=== PATIENT | male | born 1975 | race African-American/Black ===

== ENCOUNTER 2022-09-11 15:52 | Inpatient (IN) | payer OTHER ==
[2022-09-11 17:00] VITALS: RESP 18; BMI 29.4
[2022-09-11] MEDS ORDERED: BENZOCAINE/MENTHOL (CHLORASEPTIC ) LOZENGE MM PRN (19:45)
[2022-09-11] MEDS ORDERED: hydrOXYzine PAMOATE 25 MG CAPSULE (FP) PO PRN (19:45)
[2022-09-11] MEDS ORDERED: AMMONIUM LACTATE 12% LOTION 225 GM BOTTLE TP PRN (19:45)
[2022-09-11] MEDS ORDERED: MAG HYDROX/AL HYDROX/SIMETH 30 ML UNIT-DOSE CUP PO PRN (19:45)
[2022-09-11] MEDS ORDERED: COLLOIDAL OATMEAL 1 BAR EACH TP PRN (19:45)
[2022-09-11] MEDS ORDERED: POLYETHYLENE GLYCOL (HEALTHYLAX) 3350 17 GM PACKET PO PRN (19:45)
[2022-09-11] MEDS ORDERED: BENZONATATE 200 MG CAPSULE PO PRN (19:45)
[2022-09-11] MEDS ORDERED: MAGNESIUM HYDROX 2400MG/30ML ORAL SUSPENSION 30 ML CUP PO PRN (19:45)
[2022-09-11] MEDS ORDERED: guaiFENesin 600 MG TABLET.ER (FP) PO PRN (19:45)
[2022-09-11] MEDS ORDERED: LOPERAMIDE HCL 2 MG CAPSULE PO PRN (19:45)
[2022-09-11] MEDS ORDERED: ACETAMINOPHEN 325 MG TABLET (FP) PO PRN (19:45)
[2022-09-11] MEDS ORDERED: cloNIDine HCL 0.1 MG TABLET PO ONE (19:54)
[2022-09-11] MEDS: THIAMINE HCL 100 MG TABLET (FP) PO SCH (22:13)
[2022-09-11] MEDS: MELATONIN 5 MG TABLETS PO SCH (22:14)
[2022-09-12] MEDS ORDERED: LEVOTHYROXINE NA 150 MCG TABLET PO SCH (07:00)
[2022-09-12] MEDS ORDERED: hydrOXYzine PAMOATE 25 MG CAPSULE (FP) PO PRN (09:49)
[2022-09-12] MEDS: PRENATAL VITAMINS W/ FOLIC ACID TABLET (FP) PO SCH (10:27)
[2022-09-12] MEDS: SPIRONOLACTONE 25 MG TABLET PO SCH (10:27)
[2022-09-12] MEDS: FUROSEMIDE 40 MG TABLET (FP) PO SCH (10:27)
[2022-09-12 10:39] LABS: HEMATOCRIT 34.5 % (35.4-49); HEMOGLOBIN 12.1 GM/dL (11.7-16.9); MCH 33.7 pg (25.7-33.7); MEAN CELL VOLUME 96.3 fl (80-96); MEAN PLT VOLUME 8.4 fl (7.5-11.1); PLATELET COUNT 207 10^3/uL (134-434); RBC 3.58 M/mm3 (4.00-5.60); RDW 14.1 % (11.9-15.9)
[2022-09-12 10:42] LABS: CALCIUM 8.9 mg/dL (8.5-10.1)
[2022-09-12 10:46] LABS: CREATININE 1.7 mg/dL (0.55-1.3)
[2022-09-12 10:47] LABS: BILIRUBIN,TOTAL 0.8 mg/dL (0.2-1); TOT PROT 7.6 g/dl (6.4-8.2)
[2022-09-12 11:16] LABS: SYPHILIS W/ RPR CONF NON-REACTIVE (NONREACTIVE)
[2022-09-12 11:23] LABS: SICKLE CELL SCREEN NEGATIVE (NEGATIVE)
[2022-09-12 11:48] LABS: HIV INTERPRETATION NEGATIVE (NEGATIVE)
[2022-09-12] MEDS: THIAMINE HCL 100 MG TABLET (FP) PO SCH (21:12)
[2022-09-12] MEDS: MELATONIN 5 MG TABLETS PO SCH (21:12)
[2022-09-13] MEDS ORDERED: cloNIDine HCL 0.1 MG TABLET PO ONE (06:36)
[2022-09-13] MEDS ORDERED: LEVOTHYROXINE 100 MCG, LEVOTHYROXINE 50 MCG PO ONE (08:30)
[2022-09-13] MEDS: SPIRONOLACTONE 25 MG TABLET PO SCH (10:02)
[2022-09-13] MEDS: PRENATAL VITAMINS W/ FOLIC ACID TABLET (FP) PO SCH (10:02)
[2022-09-13] MEDS: FUROSEMIDE 40 MG TABLET (FP) PO SCH (10:02)
[2022-09-13] MEDS ORDERED: LACTULOSE 20 GM/30 ML UDC (FOR ORAL USE ONLY) PO PRN (10:30)
[2022-09-13] MEDS: metoPROLOL SUCCINATE 25 MG TAB.SR.24H (FP) PO SCH (11:07)
[2022-09-13] MEDS: THIAMINE HCL 100 MG TABLET (FP) PO SCH (21:23)
[2022-09-13] MEDS: LACTULOSE 20 GM/30 ML UDC (FOR ORAL USE ONLY) PO SCH (21:24)
[2022-09-13] MEDS: MELATONIN 5 MG TABLETS PO SCH (21:47)
[2022-09-14] MEDS: LACTULOSE 20 GM/30 ML UDC (FOR ORAL USE ONLY) PO SCH ×3 (05:57→21:04)
[2022-09-14] MEDS: IBUPROFEN 400 MG TABLET (FP) PO PRN (05:58)
[2022-09-14] MEDS ORDERED: LEVOTHYROXINE 100 MCG, LEVOTHYROXINE 50 MCG PO SCH (07:00)
[2022-09-14] MEDS: SPIRONOLACTONE 25 MG TABLET PO SCH (09:03)
[2022-09-14] MEDS: FUROSEMIDE 40 MG TABLET (FP) PO SCH (09:03)
[2022-09-14] MEDS: PRENATAL VITAMINS W/ FOLIC ACID TABLET (FP) PO SCH (09:03)
[2022-09-14] MEDS: metoPROLOL SUCCINATE 25 MG TAB.SR.24H (FP) PO SCH (09:04)
[2022-09-14] MEDS ORDERED: ARTIFICIAL TEARS (POLYVINYL ALCOHOL) OPTH DROPS OU PRN (10:45)
[2022-09-14] MEDS: cloNIDine HCL 0.1 MG TABLET PO SCH ×2 (11:12→21:04)
[2022-09-14] MEDS: THIAMINE HCL 100 MG TABLET (FP) PO SCH (21:03)
[2022-09-14] MEDS: MELATONIN 5 MG TABLETS PO SCH (21:03)
[2022-09-14] MEDS: NICOTINE 10 MG CARTRIDGE (INHALER) IH PRN (21:06)
[2022-09-15] MEDS ORDERED: LEVOTHYROXINE 100 MCG, LEVOTHYROXINE 50 MCG PO SCH (06:00)
[2022-09-15] MEDS: LEVOTHYROXINE 100 MCG, LEVOTHYROXINE 50 MCG PO SCH (06:21)
[2022-09-15] MEDS: LACTULOSE 20 GM/30 ML UDC (FOR ORAL USE ONLY) PO SCH (07:08)
[2022-09-15] MEDS: PRENATAL VITAMINS W/ FOLIC ACID TABLET (FP) PO SCH (09:47)
[2022-09-15] MEDS: FUROSEMIDE 40 MG TABLET (FP) PO SCH (09:47)
[2022-09-15] MEDS: SPIRONOLACTONE 25 MG TABLET PO SCH (09:47)
[2022-09-15] MEDS: cloNIDine HCL 0.1 MG TABLET PO SCH ×2 (09:47→21:08)
[2022-09-15] MEDS: metoPROLOL SUCCINATE 25 MG TAB.SR.24H (FP) PO SCH (09:48)
[2022-09-15] MEDS ORDERED: WITCH HAZEL 50% (TUCKS) 40 PAD/JAR PAD TP PRN (10:37)
[2022-09-15] MEDS ORDERED: LACTULOSE 20 GM/30 ML UDC (FOR ORAL USE ONLY) PO PRN (11:18)
[2022-09-15 11:30] LABS: INR 1.15 (0.83-1.09); PROTHROMBIN TIME (PATIENT) 13.3 SEC (9.7-13.0)
[2022-09-15] MEDS: MAGNESIUM OXIDE 400 MG TABLET (FP) PO SCH ×2 (12:38→21:08)
[2022-09-15] MEDS: CHOLECALCIFEROL (VIT D3) 400 UNIT (10 MCG) TABLET PO SCH (12:39)
[2022-09-15] MEDS: IBUPROFEN 600 MG TABLET (FP) PO PRN (12:39)
[2022-09-15] MEDS: THIAMINE HCL 100 MG TABLET (FP) PO SCH (21:08)
[2022-09-15] MEDS: MELATONIN 5 MG TABLETS PO SCH (21:08)
[2022-09-15] MEDS: NICOTINE 10 MG CARTRIDGE (INHALER) IH PRN (21:08)
[2022-09-16] MEDS: LEVOTHYROXINE 100 MCG, LEVOTHYROXINE 50 MCG PO SCH (06:17)
[2022-09-16] MEDS: IBUPROFEN 400 MG TABLET (FP) PO PRN (07:40)
[2022-09-16] MEDS: cloNIDine HCL 0.1 MG TABLET PO SCH ×2 (09:46→23:16)
[2022-09-16] MEDS: FUROSEMIDE 40 MG TABLET (FP) PO SCH (09:46)
[2022-09-16] MEDS: SPIRONOLACTONE 25 MG TABLET PO SCH (09:46)
[2022-09-16] MEDS: CHOLECALCIFEROL (VIT D3) 400 UNIT (10 MCG) TABLET PO SCH (09:46)
[2022-09-16] MEDS: metoPROLOL SUCCINATE 25 MG TAB.SR.24H (FP) PO SCH (09:46)
[2022-09-16] MEDS: MAGNESIUM OXIDE 400 MG TABLET (FP) PO SCH ×2 (09:46→23:16)
[2022-09-16] MEDS: PRENATAL VITAMINS W/ FOLIC ACID TABLET (FP) PO SCH (09:46)
[2022-09-16 12:09] LABS: CALCIUM 8.2 mg/dL (8.5-10.1)
[2022-09-16 12:10] LABS: ALBUMIN 3.1 g/dl (3.4-5.0); BLOOD UREA NITROGEN 7.6 mg/dL (7-18)
[2022-09-16 12:13] LABS: CREATININE 1.7 mg/dL (0.55-1.3)
[2022-09-16 12:15] LABS: BILIRUBIN,TOTAL 0.9 mg/dL (0.2-1); TOT PROT 7.4 g/dl (6.4-8.2)
[2022-09-16] MEDS: IBUPROFEN 600 MG TABLET (FP) PO PRN (15:45)
[2022-09-16 17:41] VITALS: BP 147/98; PULSE 87; TEMP 97.3
[2022-09-16] MEDS: MELATONIN 5 MG TABLETS PO SCH (23:17)
[2022-09-16] MEDS: THIAMINE HCL 100 MG TABLET (FP) PO SCH (23:17)
== END 2022-09-17 00:01 | disposition short-term general hospital (02) | DRG 772 ==
LOC: YASAS 15:52 → Y3W 20:56
PROVIDERS: ADMIT Allergy & Immunology; ATTEND Family Medicine
PROC: HZ42ZZZ Group Counseling for Substance Abuse Treatment, Cognitive-Behavioral (ICD-10-PCS; principal; 2022-09-11)
DX: F10.20 Alcohol dependence, uncomplicated (principal); F17.210 Nicotine dependence, cigarettes, uncomplicated; F10.282 Alcohol dependence with alcohol-induced sleep disorder; F10.280 Alcohol dependence with alcohol-induced anxiety disorder; F10.24 Alcohol dependence with alcohol-induced mood disorder; I10 Essential (primary) hypertension; K70.31 Alcoholic cirrhosis of liver with ascites; E03.9 Hypothyroidism, unspecified; E87.1 Hypo-osmolality and hyponatremia; Z28.310 Unvaccinated for COVID-19; Z28.9 Immunization not carried out for unspecified reason
CPT/HCPCS: 36415; 80053; 82140; 82306; 82607; 82746; 83735; 84443; 85027; 85610; 85660; 86780; 86803; 87389; 93005; 93010; C9803-CS; U0003; U0005

== ENCOUNTER 2022-09-16 17:05 | Inpatient (IN) | payer OTHER ==
[2022-09-16 18:47] LABS: BASO % 0.5 % (0-2.0); EOS % 0.5 % (0-4.5); HEMATOCRIT 31.6 % (35.4-49); HEMOGLOBIN 10.9 GM/dL (11.7-16.9); LYMPH % 16.7 % (8-40); MCH 32.5 pg (25.7-33.7); MCHC 34.4 g/dl (32.0-35.9); MEAN CELL VOLUME 94.7 fl (80-96); MEAN PLT VOLUME 7.5 fl (7.5-11.1); MONO % 14.4 % (3.8-10.2); NEUT % 67.9 % (42.8-82.8); PLATELET COUNT 259 10^3/uL (134-434); RBC 3.34 M/mm3 (4.00-5.60); RDW 13.5 % (11.9-15.9); WHITE BLOOD COUNT 6.8 K/mm3 (4.0-10.0)
[2022-09-16 19:05] LABS: POTASSIUM 3.7 mmol/L (3.5-5.1)
[2022-09-16 19:08] LABS: BLOOD UREA NITROGEN 8.1 mg/dL (7-18)
[2022-09-16 19:09] LABS: ALBUMIN 3.1 g/dl (3.4-5.0); MAGNESIUM 1.4 mg/dL (1.8-2.4)
[2022-09-16 19:11] LABS: BILIRUBIN,DIRECT 0.5 mg/dL (0.0-0.2); CREATININE 1.5 mg/dL (0.55-1.3)
[2022-09-16 19:13] LABS: BILIRUBIN,TOTAL 1.1 mg/dL (0.2-1); TOT PROT 7.5 g/dl (6.4-8.2)
[2022-09-16 19:16] LABS: INR 1.2 (0.83-1.09); PROTHROMBIN TIME (PATIENT) 13.9 SEC (9.7-13.0)
[2022-09-16 19:19] LABS: ACTIVATED PTT 29.3 SECONDS (25.2-36.5)
[2022-09-16 19:21] LABS: LACTIC ACID 2.7 mmol/L (0.4-2.0)
[2022-09-17] MEDS ORDERED: FUROSEMIDE 40 MG/4 ML INJECTABLE VIAL IVPUSH ONE (00:22)
[2022-09-17] MEDS ORDERED: SPIRONOLACTONE 25 MG TABLET PO ONE (00:22)
[2022-09-17] MEDS ORDERED: FUROSEMIDE 40 MG/4 ML INJECTABLE VIAL IVPUSH SCH (00:30)
[2022-09-17] MEDS: SPIRONOLACTONE 25 MG TABLET PO SCH ×2 (01:14→11:01)
[2022-09-17] MEDS ORDERED: LEVOTHYROXINE NA 150 MCG TABLET PO SCH (07:00)
[2022-09-17 07:21] LABS: BASO % 0.4 % (0-2.0); EOS % 0.5 % (0-4.5); HEMATOCRIT 34.2 % (35.4-49); HEMOGLOBIN 12.2 GM/dL (11.7-16.9); LYMPH % 15.2 % (8-40); MCH 33.9 pg (25.7-33.7); MCHC 35.8 g/dl (32.0-35.9); MEAN CELL VOLUME 94.7 fl (80-96); MEAN PLT VOLUME 8.3 fl (7.5-11.1); MONO % 14.2 % (3.8-10.2); NEUT % 69.7 % (42.8-82.8); PLATELET COUNT 262 10^3/uL (134-434); RBC 3.61 M/mm3 (4.00-5.60); RDW 13.3 % (11.9-15.9); WHITE BLOOD COUNT 5.8 K/mm3 (4.0-10.0)
[2022-09-17 07:43] LABS: POTASSIUM 3.9 mmol/L (3.5-5.1)
[2022-09-17 07:45] LABS: ALBUMIN 3.1 g/dl (3.4-5.0); CALCIUM 8.4 mg/dL (8.5-10.1)
[2022-09-17 07:46] LABS: BLOOD UREA NITROGEN 8.2 mg/dL (7-18); MAGNESIUM 1.2 mg/dL (1.8-2.4)
[2022-09-17 07:48] LABS: CREATININE 1.5 mg/dL (0.55-1.3); PHOSPHOROUS 3.7 mg/dL (2.5-4.9)
[2022-09-17 07:50] LABS: TOT PROT 7.9 g/dl (6.4-8.2)
[2022-09-17] MEDS: FUROSEMIDE 40 MG TABLET (FP) PO SCH (09:18)
[2022-09-17] MEDS: GABAPENTIN 100 MG CAPSULE PO SCH ×3 (09:18→23:02)
[2022-09-17] MEDS ORDERED: FUROSEMIDE 40 MG TABLET (FP) PO SCH (10:00)
[2022-09-17] MEDS ORDERED: SPIRONOLACTONE 25 MG TABLET PO SCH (10:00)
[2022-09-17] MEDS ORDERED: ENOXAPARIN NA (PORCINE) 40 MG/0.4 ML DISP.SYRIN SQ SCH (10:00)
[2022-09-17] MEDS: ENOXAPARIN NA (PORCINE) 40 MG/0.4 ML DISP.SYRIN SQ SCH (14:34)
[2022-09-17] MEDS ORDERED: MAGNESIUM SULF 50% (8.12 MEQ/2 ML-1 GM VIAL) IVPB ONE (16:42)
[2022-09-17] MEDS ORDERED: ACETAMINOPHEN 325 MG TABLET (FP) PO ONE (20:02)
[2022-09-17] MEDS ORDERED: traZODone HCL 50 MG TABLET (FP) ONE (21:03)
[2022-09-17] MEDS: traZODone HCL 100 MG TABLET (FP) PO SCH (23:03)
[2022-09-18] MEDS: GABAPENTIN 100 MG CAPSULE PO SCH ×3 (06:25→22:59)
[2022-09-18] MEDS: LEVOTHYROXINE NA 150 MCG TABLET PO SCH (06:26)
[2022-09-18] MEDS ORDERED: LEVOTHYROXINE NA 150 MCG TABLET PO SCH (07:00)
[2022-09-18 08:49] LABS: POTASSIUM 3.2 mmol/L (3.5-5.1)
[2022-09-18 08:54] LABS: ALBUMIN 2.9 g/dl (3.4-5.0); CALCIUM 7.9 mg/dL (8.5-10.1)
[2022-09-18 08:55] LABS: BLOOD UREA NITROGEN 8.2 mg/dL (7-18)
[2022-09-18 08:57] LABS: CREATININE 1.3 mg/dL (0.55-1.3)
[2022-09-18 08:58] LABS: BILIRUBIN,DIRECT 0.3 mg/dL (0.0-0.2)
[2022-09-18 08:59] LABS: BILIRUBIN,TOTAL 0.7 mg/dL (0.2-1); TOT PROT 7.1 g/dl (6.4-8.2)
[2022-09-18] MEDS ORDERED: POTASSIUM CHLORIDE TABS 20 MEQ TABLET.ER (FP) PO ONE (09:49)
[2022-09-18] MEDS: FUROSEMIDE 40 MG TABLET (FP) PO SCH (09:55)
[2022-09-18] MEDS: SPIRONOLACTONE 25 MG TABLET PO SCH (09:55)
[2022-09-18] MEDS: ENOXAPARIN NA (PORCINE) 40 MG/0.4 ML DISP.SYRIN SQ SCH (09:56)
[2022-09-18] MEDS ORDERED: FUROSEMIDE 40 MG TABLET (FP) PO SCH (10:00)
[2022-09-18] MEDS ORDERED: traZODone HCL 50 MG TABLET (FP) ONE (21:03)
[2022-09-18] MEDS ORDERED: ACETAMINOPHEN 325 MG TABLET (FP) PO ONE (22:56)
[2022-09-18] MEDS: traZODone HCL 100 MG TABLET (FP) PO SCH (22:59)
[2022-09-19] MEDS: GABAPENTIN 100 MG CAPSULE PO SCH ×3 (06:28→21:25)
[2022-09-19] MEDS: LEVOTHYROXINE NA 150 MCG TABLET PO SCH (06:28)
[2022-09-19] MEDS ORDERED: POTASSIUM CHLORIDE TABS 20 MEQ TABLET.ER (FP) PO ONE ×2 (08:28→13:39)
[2022-09-19 08:34] LABS: BASO % 0.6 % (0-2.0); EOS % 0.8 % (0-4.5); HEMATOCRIT 34.7 % (35.4-49); HEMOGLOBIN 11.9 GM/dL (11.7-16.9); LYMPH % 21.4 % (8-40); MCH 32.4 pg (25.7-33.7); MCHC 34.1 g/dl (32.0-35.9); MEAN CELL VOLUME 94.9 fl (80-96); MEAN PLT VOLUME 7.5 fl (7.5-11.1); MONO % 14.2 % (3.8-10.2); PLATELET COUNT 313 10^3/uL (134-434); RBC 3.66 M/mm3 (4.00-5.60); RDW 13.5 % (11.9-15.9); WHITE BLOOD COUNT 5.9 K/mm3 (4.0-10.0)
[2022-09-19 08:57] LABS: INR 1.16 (0.83-1.09); PROTHROMBIN TIME (PATIENT) 13.4 SEC (9.7-13.0)
[2022-09-19 08:58] LABS: ACTIVATED PTT 30.9 SECONDS (25.2-36.5)
[2022-09-19 08:59] LABS: POTASSIUM 3.3 mmol/L (3.5-5.1)
[2022-09-19 09:13] LABS: ALBUMIN 3.2 g/dl (3.4-5.0); CREATININE 1.3 mg/dL (0.55-1.3); PHOSPHOROUS 2.5 mg/dL (2.5-4.9)
[2022-09-19 09:14] LABS: BILIRUBIN,TOTAL 0.9 mg/dL (0.2-1); CALCIUM 8.6 mg/dL (8.5-10.1); MAGNESIUM 1.6 mg/dL (1.8-2.4); TOT PROT 8.1 g/dl (6.4-8.2)
[2022-09-19] MEDS: SPIRONOLACTONE 25 MG TABLET PO SCH (09:55)
[2022-09-19] MEDS: FUROSEMIDE 40 MG TABLET (FP) PO SCH (09:57)
[2022-09-19] MEDS ORDERED: MAGNESIUM SULF 50% (8.12 MEQ/2 ML-1 GM VIAL) IVPB ONE (13:39)
[2022-09-19] MEDS ORDERED: ALBUMIN HUMAN 25% 100 ML VIAL IV ONE (17:00)
[2022-09-19] MEDS ORDERED: LEVOTHYROXINE NA 150 MCG TABLET PO SCH (19:09)
[2022-09-19] MEDS ORDERED: ALBUMIN HUMAN 25% 100 ML VIAL IV SCH (19:15)
[2022-09-19] MEDS ORDERED: traZODone HCL 50 MG TABLET (FP) ONE (20:43)
[2022-09-19] MEDS: traZODone HCL 100 MG TABLET (FP) PO SCH (21:26)
[2022-09-19] MEDS: ALBUMIN HUMAN 25% 12.5 GM/50 ML VIAL IV SCH ×2 (21:27→22:03)
[2022-09-19 23:53] LABS: BF WBC & OTHER NUCLEATED CELLS 156 /mm3
[2022-09-19 23:56] LABS: BODY FLUID MACROPHAGES 32 %
[2022-09-20] MEDS: GABAPENTIN 100 MG CAPSULE PO SCH ×3 (06:26→22:58)
[2022-09-20] MEDS: LEVOTHYROXINE 100 MCG, LEVOTHYROXINE 75 MCG PO SCH (06:26)
[2022-09-20 08:16] LABS: INR 1.16 (0.83-1.09); PROTHROMBIN TIME (PATIENT) 13.4 SEC (9.7-13.0)
[2022-09-20 08:24] LABS: HEMATOCRIT 33.3 % (35.4-49); HEMOGLOBIN 11.6 GM/dL (11.7-16.9); MCH 32.8 pg (25.7-33.7); MCHC 34.7 g/dl (32.0-35.9); MEAN CELL VOLUME 94.8 fl (80-96); MEAN PLT VOLUME 7.4 fl (7.5-11.1); PLATELET COUNT 304 10^3/uL (134-434); RBC 3.52 M/mm3 (4.00-5.60); RDW 13.3 % (11.9-15.9); WHITE BLOOD COUNT 5.8 K/mm3 (4.0-10.0)
[2022-09-20 08:33] LABS: POTASSIUM 4.6 mmol/L (3.5-5.1)
[2022-09-20 08:40] LABS: CALCIUM 9.2 mg/dL (8.5-10.1); PHOSPHOROUS 2.3 mg/dL (2.5-4.9)
[2022-09-20 08:41] LABS: ALBUMIN 3.8 g/dl (3.4-5.0); BLOOD UREA NITROGEN 3.9 mg/dL (7-18); MAGNESIUM 2.2 mg/dL (1.8-2.4)
[2022-09-20 08:42] LABS: CREATININE 1.4 mg/dL (0.55-1.3)
[2022-09-20 08:44] LABS: BILIRUBIN,TOTAL 0.9 mg/dL (0.2-1); TOT PROT 8.1 g/dl (6.4-8.2)
[2022-09-20] MEDS ORDERED: NAPH,MB-DB/K PH,MBDB POWDER PACKET PO ONE (08:56)
[2022-09-20] MEDS: ENOXAPARIN NA (PORCINE) 40 MG/0.4 ML DISP.SYRIN SQ SCH (10:31)
[2022-09-20] MEDS: FUROSEMIDE 40 MG TABLET (FP) PO SCH (10:32)
[2022-09-20] MEDS: SPIRONOLACTONE 25 MG TABLET PO SCH (10:32)
[2022-09-20] MEDS ORDERED: SODIUM CHLORIDE 1 GM TABLET PO ONE (11:01)
[2022-09-20 16:26] VITALS: BMI 26.8
[2022-09-20] MEDS ORDERED: FUROSEMIDE 40 MG TABLET (FP) PO ONE (17:00)
[2022-09-20] MEDS ORDERED: traZODone HCL 50 MG TABLET (FP) ONE (22:30)
[2022-09-20] MEDS ORDERED: traZODone HCL 50 MG TABLET (FP) PO SCH ×2 (22:55→23:00)
[2022-09-20] MEDS: traZODone HCL 100 MG TABLET (FP) PO SCH (23:02)
[2022-09-21] MEDS ORDERED: IBUPROFEN 200 MG TABLET PO ONE (02:57)
[2022-09-21] MEDS: LEVOTHYROXINE 100 MCG, LEVOTHYROXINE 75 MCG PO SCH (06:58)
[2022-09-21] MEDS: GABAPENTIN 100 MG CAPSULE PO SCH ×2 (06:58→13:20)
[2022-09-21 08:13] LABS: POTASSIUM 4.2 mmol/L (3.5-5.1)
[2022-09-21 08:14] LABS: ALBUMIN 3.7 g/dl (3.4-5.0); CALCIUM 9.7 mg/dL (8.5-10.1)
[2022-09-21 08:16] LABS: BLOOD UREA NITROGEN 4.4 mg/dL (7-18)
[2022-09-21 08:17] LABS: CREATININE 1.5 mg/dL (0.55-1.3)
[2022-09-21 08:19] LABS: BILIRUBIN,TOTAL 0.8 mg/dL (0.2-1); TOT PROT 8.5 g/dl (6.4-8.2)
[2022-09-21 09:10] VITALS: BP 107/71; PULSE 93; RESP 18; TEMP 99.3
[2022-09-21] MEDS: SPIRONOLACTONE 25 MG TABLET PO SCH (09:47)
[2022-09-21] MEDS: FUROSEMIDE 40 MG TABLET (FP) PO SCH (09:47)
[2022-09-21] MEDS: ENOXAPARIN NA (PORCINE) 40 MG/0.4 ML DISP.SYRIN SQ SCH (09:47)
[2022-09-21 10:31] LABS: MAGNESIUM 1.6 mg/dL (1.8-2.4)
[2022-09-21 10:33] LABS: PHOSPHOROUS 3.4 mg/dL (2.5-4.9)
[2022-09-21] MEDS ORDERED: MAGNESIUM SULF 50% (8.12 MEQ/2 ML-1 GM VIAL) IVPB ONE (11:09)
[2022-09-21 16:11] LABS: BODY FLUID ALBUMIN 1.9 g/dL (Not Estab.)
== END 2022-09-21 14:38 | disposition other institution (70) | DRG 280 ==
LOC: JER 17:05 → JERBED 18:56 → J4W 21:41
PROVIDERS: ADMIT Internal Medicine; ATTEND Internal Medicine
PROC: 0W9G3ZZ Drainage of Peritoneal Cavity, Percutaneous Approach (ICD-10-PCS; principal; 2022-09-19)
DX: K70.31 Alcoholic cirrhosis of liver with ascites (principal); E87.1 Hypo-osmolality and hyponatremia; K70.10 Alcoholic hepatitis without ascites; F10.20 Alcohol dependence, uncomplicated; E03.9 Hypothyroidism, unspecified; F17.200 Nicotine dependence, unspecified, uncomplicated; E83.42 Hypomagnesemia; R94.31 Abnormal electrocardiogram [ECG] [EKG]; I12.9 Hypertensive chronic kidney disease with stage 1 through stage 4 chronic kidney disease, or unspecified chronic kidney disease; N18.9 Chronic kidney disease, unspecified
CPT/HCPCS: 0241U-QW; 36415; 76705-TC; 80048; 80053; 80076; 82042; 82105; 82140; 82150; 82248; 82728; 82945; 82962; 83516; 83540; 83550; 83605; 83615; 83690; 83735; 83930; 83986; 84100; 84157; 84436; 84443; 85025; 85027; 85610; 85730; 86038; 86705; 86708; 86803; 86850; 86900; 86901; 87070; 87075; 87205; 87340; 87517; 88108; 88305-TC; 93005; 93010; 97116-GP; 97161-GP; 99285-25; P9047

== ENCOUNTER 2022-09-21 16:29 | Inpatient (IN) | payer OTHER ==
[2022-09-21 17:21] VITALS: BMI 28.1
[2022-09-21] MEDS ORDERED: COLLOIDAL OATMEAL 1 BAR EACH TP PRN (17:55)
[2022-09-21] MEDS ORDERED: P-EPHED 60MG/TRIPROLIDI 2.5MG TABLET PO PRN (17:55)
[2022-09-21] MEDS ORDERED: BENZONATATE 200 MG CAPSULE PO PRN (17:55)
[2022-09-21] MEDS ORDERED: MAGNESIUM HYDROX 2400MG/30ML ORAL SUSPENSION 30 ML CUP PO PRN (17:55)
[2022-09-21] MEDS ORDERED: LOPERAMIDE HCL 2 MG CAPSULE PO PRN (17:55)
[2022-09-21] MEDS ORDERED: MAG HYDROX/AL HYDROX/SIMETH 30 ML UNIT-DOSE CUP PO PRN (17:55)
[2022-09-21] MEDS ORDERED: AMMONIUM LACTATE 12% LOTION 225 GM BOTTLE TP PRN (17:55)
[2022-09-21] MEDS ORDERED: NICOTINE 10 MG CARTRIDGE (INHALER) IH PRN (17:55)
[2022-09-21] MEDS ORDERED: POLYETHYLENE GLYCOL (HEALTHYLAX) 3350 17 GM PACKET PO PRN (17:55)
[2022-09-21] MEDS ORDERED: guaiFENesin 600 MG TABLET.ER (FP) PO PRN (17:55)
[2022-09-21] MEDS ORDERED: BENZOCAINE/MENTHOL (CHLORASEPTIC ) LOZENGE MM PRN (17:55)
[2022-09-21] MEDS: THIAMINE HCL 100 MG TABLET (FP) PO SCH (21:03)
[2022-09-21] MEDS: traZODone HCL 50 MG TABLET (FP) PO SCH (21:03)
[2022-09-21] MEDS: GABAPENTIN 100 MG CAPSULE PO SCH (21:04)
[2022-09-22] MEDS: LEVOTHYROXINE 100 MCG, LEVOTHYROXINE 75 MCG PO SCH (06:23)
[2022-09-22] MEDS: GABAPENTIN 100 MG CAPSULE PO SCH ×3 (06:25→21:39)
[2022-09-22] MEDS ORDERED: LEVOTHYROXINE NA 150 MCG TABLET PO SCH (07:00)
[2022-09-22] MEDS: PRENATAL VITAMINS W/ FOLIC ACID TABLET (FP) PO SCH (09:57)
[2022-09-22] MEDS: FUROSEMIDE 40 MG TABLET (FP) PO SCH (09:57)
[2022-09-22] MEDS: SPIRONOLACTONE 25 MG TABLET PO SCH (09:57)
[2022-09-22] MEDS: traZODone HCL 50 MG TABLET (FP) PO SCH (21:39)
[2022-09-22] MEDS: THIAMINE HCL 100 MG TABLET (FP) PO SCH (21:40)
[2022-09-22] MEDS: MELATONIN 5 MG TABLETS PO PRN (22:40)
[2022-09-23] MEDS: GABAPENTIN 100 MG CAPSULE PO SCH ×3 (06:55→21:02)
[2022-09-23] MEDS: LEVOTHYROXINE 100 MCG, LEVOTHYROXINE 75 MCG PO SCH (06:55)
[2022-09-23] MEDS: SPIRONOLACTONE 25 MG TABLET PO SCH (10:33)
[2022-09-23] MEDS: PRENATAL VITAMINS W/ FOLIC ACID TABLET (FP) PO SCH (10:33)
[2022-09-23] MEDS: FUROSEMIDE 40 MG TABLET (FP) PO SCH (10:33)
[2022-09-23 11:33] LABS: INR 1.22 (0.83-1.09); PROTHROMBIN TIME (PATIENT) 14.1 SEC (9.7-13.0)
[2022-09-23 11:52] LABS: POTASSIUM 4.9 mmol/L (3.5-5.1)
[2022-09-23 12:14] LABS: ALBUMIN 3.6 g/dl (3.4-5.0); BLOOD UREA NITROGEN 7.7 mg/dL (7-18); CALCIUM 9.6 mg/dL (8.5-10.1)
[2022-09-23 12:17] LABS: CREATININE 1.6 mg/dL (0.55-1.3); PHOSPHOROUS 3.9 mg/dL (2.5-4.9)
[2022-09-23] MEDS: MELATONIN 5 MG TABLETS PO PRN (21:01)
[2022-09-23] MEDS: THIAMINE HCL 100 MG TABLET (FP) PO SCH (21:01)
[2022-09-23] MEDS: traZODone HCL 50 MG TABLET (FP) PO SCH (22:57)
[2022-09-24] MEDS: GABAPENTIN 100 MG CAPSULE PO SCH ×3 (06:51→23:05)
[2022-09-24] MEDS: LEVOTHYROXINE 100 MCG, LEVOTHYROXINE 75 MCG PO SCH (06:51)
[2022-09-24] MEDS: SPIRONOLACTONE 25 MG TABLET PO SCH (09:31)
[2022-09-24] MEDS: PRENATAL VITAMINS W/ FOLIC ACID TABLET (FP) PO SCH (09:31)
[2022-09-24] MEDS: FUROSEMIDE 40 MG TABLET (FP) PO SCH (09:32)
[2022-09-24] MEDS: THIAMINE HCL 100 MG TABLET (FP) PO SCH (23:06)
[2022-09-24] MEDS: traZODone HCL 50 MG TABLET (FP) PO SCH (23:06)
[2022-09-25] MEDS: LEVOTHYROXINE 100 MCG, LEVOTHYROXINE 75 MCG PO SCH (06:35)
[2022-09-25] MEDS: GABAPENTIN 100 MG CAPSULE PO SCH ×3 (07:11→21:30)
[2022-09-25] MEDS: PRENATAL VITAMINS W/ FOLIC ACID TABLET (FP) PO SCH (10:18)
[2022-09-25] MEDS: FUROSEMIDE 40 MG TABLET (FP) PO SCH (10:19)
[2022-09-25] MEDS: SPIRONOLACTONE 25 MG TABLET PO SCH (10:19)
[2022-09-25] MEDS: THIAMINE HCL 100 MG TABLET (FP) PO SCH (21:30)
[2022-09-25] MEDS: MELATONIN 5 MG TABLETS PO PRN (21:30)
[2022-09-25] MEDS: traZODone HCL 50 MG TABLET (FP) PO SCH (21:33)
[2022-09-26] MEDS: LEVOTHYROXINE 100 MCG, LEVOTHYROXINE 75 MCG PO SCH (05:59)
[2022-09-26] MEDS: GABAPENTIN 100 MG CAPSULE PO SCH ×2 (05:59→14:35)
[2022-09-26] MEDS: SPIRONOLACTONE 25 MG TABLET PO SCH (09:40)
[2022-09-26] MEDS: PRENATAL VITAMINS W/ FOLIC ACID TABLET (FP) PO SCH (09:40)
[2022-09-26] MEDS: FUROSEMIDE 40 MG TABLET (FP) PO SCH (09:40)
[2022-09-26 12:19] LABS: ALBUMIN 3.5 g/dl (3.4-5.0); BILIRUBIN,TOTAL 0.6 mg/dL (0.2-1); BLOOD UREA NITROGEN 12.1 mg/dL (7-18); CREATININE 1.5 mg/dL (0.55-1.3); TOT PROT 8.3 g/dl (6.4-8.2)
[2022-09-26] MEDS ORDERED: FUROSEMIDE 20 MG TABLET (FP) PO SCH (16:00)
[2022-09-26] MEDS: THIAMINE HCL 100 MG TABLET (FP) PO SCH (21:24)
[2022-09-26] MEDS: traZODone HCL 50 MG TABLET (FP) PO SCH (21:24)
[2022-09-26] MEDS: MELATONIN 5 MG TABLETS PO PRN (21:46)
[2022-09-26] MEDS ORDERED: FUROSEMIDE 40 MG TABLET (FP) PO SCH (22:00)
[2022-09-27] MEDS: FUROSEMIDE 20 MG TABLET (FP) PO SCH ×2 (06:06→13:59)
[2022-09-27] MEDS: LEVOTHYROXINE 100 MCG, LEVOTHYROXINE 75 MCG PO SCH (06:06)
[2022-09-27] MEDS: SPIRONOLACTONE 25 MG TABLET PO SCH (10:25)
[2022-09-27] MEDS: PRENATAL VITAMINS W/ FOLIC ACID TABLET (FP) PO SCH (10:25)
[2022-09-27] MEDS: THIAMINE HCL 100 MG TABLET (FP) PO SCH (21:37)
[2022-09-27] MEDS: traZODone HCL 50 MG TABLET (FP) PO SCH (21:37)
[2022-09-27] MEDS: MELATONIN 5 MG TABLETS PO PRN (21:38)
[2022-09-28] MEDS: FUROSEMIDE 20 MG TABLET (FP) PO SCH ×2 (06:14→15:16)
[2022-09-28] MEDS: LEVOTHYROXINE 100 MCG, LEVOTHYROXINE 75 MCG PO SCH (06:15)
[2022-09-28] MEDS: PRENATAL VITAMINS W/ FOLIC ACID TABLET (FP) PO SCH (09:47)
[2022-09-28] MEDS: SPIRONOLACTONE 25 MG TABLET PO SCH (09:47)
[2022-09-28] MEDS: THIAMINE HCL 100 MG TABLET (FP) PO SCH (21:23)
[2022-09-28] MEDS: MELATONIN 5 MG TABLETS PO PRN (21:23)
[2022-09-28] MEDS: traZODone HCL 50 MG TABLET (FP) PO SCH (21:23)
[2022-09-29] MEDS: LEVOTHYROXINE 100 MCG, LEVOTHYROXINE 75 MCG PO SCH (06:16)
[2022-09-29] MEDS: FUROSEMIDE 20 MG TABLET (FP) PO SCH ×2 (06:16→13:45)
[2022-09-29] MEDS ORDERED: CHOLECALCIFEROL (VIT D3) 400 UNIT (10 MCG) TABLET PO ONE (10:00)
[2022-09-29] MEDS: SPIRONOLACTONE 25 MG TABLET PO SCH (10:17)
[2022-09-29] MEDS: PRENATAL VITAMINS W/ FOLIC ACID TABLET (FP) PO SCH (10:17)
[2022-09-29] MEDS: MAGNESIUM OXIDE 400 MG TABLET (FP) PO SCH (12:11)
[2022-09-29] MEDS: MELATONIN 5 MG TABLETS PO PRN (21:31)
[2022-09-29] MEDS: THIAMINE HCL 100 MG TABLET (FP) PO SCH (21:31)
[2022-09-29] MEDS: traZODone HCL 50 MG TABLET (FP) PO SCH (21:32)
[2022-09-30] MEDS: LEVOTHYROXINE 100 MCG, LEVOTHYROXINE 75 MCG PO SCH (06:06)
[2022-09-30] MEDS: FUROSEMIDE 20 MG TABLET (FP) PO SCH ×2 (06:06→13:24)
[2022-09-30] MEDS: PRENATAL VITAMINS W/ FOLIC ACID TABLET (FP) PO SCH (09:28)
[2022-09-30] MEDS: CHOLECALCIFEROL (VIT D3) 400 UNIT (10 MCG) TABLET PO SCH (09:29)
[2022-09-30] MEDS: SPIRONOLACTONE 25 MG TABLET PO SCH (09:29)
[2022-09-30] MEDS: MAGNESIUM OXIDE 400 MG TABLET (FP) PO SCH (09:29)
[2022-09-30] MEDS: traZODone HCL 50 MG TABLET (FP) PO SCH (21:47)
[2022-09-30] MEDS: THIAMINE HCL 100 MG TABLET (FP) PO SCH (21:47)
[2022-09-30] MEDS: MELATONIN 5 MG TABLETS PO PRN (21:48)
[2022-10-01] MEDS: LEVOTHYROXINE 100 MCG, LEVOTHYROXINE 75 MCG PO SCH (06:06)
[2022-10-01] MEDS: FUROSEMIDE 20 MG TABLET (FP) PO SCH ×2 (06:06→15:02)
[2022-10-01] MEDS: SPIRONOLACTONE 25 MG TABLET PO SCH (10:41)
[2022-10-01] MEDS: MAGNESIUM OXIDE 400 MG TABLET (FP) PO SCH (10:41)
[2022-10-01] MEDS: PRENATAL VITAMINS W/ FOLIC ACID TABLET (FP) PO SCH (10:41)
[2022-10-01] MEDS: CHOLECALCIFEROL (VIT D3) 400 UNIT (10 MCG) TABLET PO SCH (10:42)
[2022-10-01] MEDS: traZODone HCL 50 MG TABLET (FP) PO SCH (21:38)
[2022-10-01] MEDS: THIAMINE HCL 100 MG TABLET (FP) PO SCH (21:38)
[2022-10-01] MEDS: MELATONIN 5 MG TABLETS PO PRN (21:38)
[2022-10-02] MEDS: FUROSEMIDE 20 MG TABLET (FP) PO SCH ×2 (06:32→14:40)
[2022-10-02] MEDS: LEVOTHYROXINE 100 MCG, LEVOTHYROXINE 75 MCG PO SCH (07:04)
[2022-10-02] MEDS: SPIRONOLACTONE 25 MG TABLET PO SCH (09:58)
[2022-10-02] MEDS: PRENATAL VITAMINS W/ FOLIC ACID TABLET (FP) PO SCH (09:59)
[2022-10-02] MEDS: CHOLECALCIFEROL (VIT D3) 400 UNIT (10 MCG) TABLET PO SCH (09:59)
[2022-10-02] MEDS: MAGNESIUM OXIDE 400 MG TABLET (FP) PO SCH (09:59)
[2022-10-02] MEDS: THIAMINE HCL 100 MG TABLET (FP) PO SCH (22:06)
[2022-10-02] MEDS: traZODone HCL 50 MG TABLET (FP) PO SCH (22:06)
[2022-10-03] MEDS: LEVOTHYROXINE 100 MCG, LEVOTHYROXINE 75 MCG PO SCH (06:10)
[2022-10-03] MEDS: FUROSEMIDE 20 MG TABLET (FP) PO SCH ×2 (07:04→14:31)
[2022-10-03] MEDS: SPIRONOLACTONE 25 MG TABLET PO SCH (10:38)
[2022-10-03] MEDS: MAGNESIUM OXIDE 400 MG TABLET (FP) PO SCH (10:39)
[2022-10-03] MEDS: PRENATAL VITAMINS W/ FOLIC ACID TABLET (FP) PO SCH (10:39)
[2022-10-03] MEDS: CHOLECALCIFEROL (VIT D3) 400 UNIT (10 MCG) TABLET PO SCH (10:39)
[2022-10-03] MEDS: THIAMINE HCL 100 MG TABLET (FP) PO SCH (22:01)
[2022-10-03] MEDS: traZODone HCL 50 MG TABLET (FP) PO SCH (22:02)
[2022-10-03] MEDS: MELATONIN 5 MG TABLETS PO PRN (22:02)
[2022-10-04] MEDS: FUROSEMIDE 20 MG TABLET (FP) PO SCH ×2 (06:04→14:00)
[2022-10-04] MEDS: LEVOTHYROXINE 100 MCG, LEVOTHYROXINE 75 MCG PO SCH (06:04)
[2022-10-04] MEDS: PRENATAL VITAMINS W/ FOLIC ACID TABLET (FP) PO SCH (09:30)
[2022-10-04] MEDS: SPIRONOLACTONE 25 MG TABLET PO SCH (09:30)
[2022-10-04] MEDS: CHOLECALCIFEROL (VIT D3) 400 UNIT (10 MCG) TABLET PO SCH (09:31)
[2022-10-04] MEDS: MAGNESIUM OXIDE 400 MG TABLET (FP) PO SCH (09:31)
[2022-10-04] MEDS: THIAMINE HCL 100 MG TABLET (FP) PO SCH (21:40)
[2022-10-04] MEDS: traZODone HCL 50 MG TABLET (FP) PO SCH (21:40)
[2022-10-04] MEDS: MELATONIN 5 MG TABLETS PO PRN (21:40)
[2022-10-05] MEDS: FUROSEMIDE 20 MG TABLET (FP) PO SCH ×2 (06:17→13:07)
[2022-10-05] MEDS: LEVOTHYROXINE 100 MCG, LEVOTHYROXINE 75 MCG PO SCH (06:17)
[2022-10-05] MEDS: MAGNESIUM OXIDE 400 MG TABLET (FP) PO SCH (10:24)
[2022-10-05] MEDS: CHOLECALCIFEROL (VIT D3) 400 UNIT (10 MCG) TABLET PO SCH (10:24)
[2022-10-05] MEDS: PRENATAL VITAMINS W/ FOLIC ACID TABLET (FP) PO SCH (10:24)
[2022-10-05] MEDS: SPIRONOLACTONE 25 MG TABLET PO SCH (10:24)
[2022-10-05] MEDS: THIAMINE HCL 100 MG TABLET (FP) PO SCH (21:36)
[2022-10-05] MEDS: traZODone HCL 50 MG TABLET (FP) PO SCH (21:36)
[2022-10-05] MEDS: MELATONIN 5 MG TABLETS PO PRN (21:36)
[2022-10-06] MEDS: FUROSEMIDE 20 MG TABLET (FP) PO SCH ×2 (06:21→13:46)
[2022-10-06] MEDS: LEVOTHYROXINE 100 MCG, LEVOTHYROXINE 75 MCG PO SCH (06:22)
[2022-10-06] MEDS: SPIRONOLACTONE 25 MG TABLET PO SCH (09:49)
[2022-10-06] MEDS: PRENATAL VITAMINS W/ FOLIC ACID TABLET (FP) PO SCH (09:49)
[2022-10-06] MEDS: MAGNESIUM OXIDE 400 MG TABLET (FP) PO SCH (09:49)
[2022-10-06] MEDS: CHOLECALCIFEROL (VIT D3) 400 UNIT (10 MCG) TABLET PO SCH (09:50)
[2022-10-06] MEDS: MELATONIN 5 MG TABLETS PO PRN (21:36)
[2022-10-06] MEDS: traZODone HCL 50 MG TABLET (FP) PO SCH (21:36)
[2022-10-06] MEDS: THIAMINE HCL 100 MG TABLET (FP) PO SCH (21:36)
[2022-10-07] MEDS: LEVOTHYROXINE 100 MCG, LEVOTHYROXINE 75 MCG PO SCH (06:18)
[2022-10-07] MEDS: FUROSEMIDE 20 MG TABLET (FP) PO SCH ×2 (06:18→13:57)
[2022-10-07] MEDS: PRENATAL VITAMINS W/ FOLIC ACID TABLET (FP) PO SCH (10:26)
[2022-10-07] MEDS: MAGNESIUM OXIDE 400 MG TABLET (FP) PO SCH (10:26)
[2022-10-07] MEDS: CHOLECALCIFEROL (VIT D3) 400 UNIT (10 MCG) TABLET PO SCH (10:26)
[2022-10-07] MEDS: SPIRONOLACTONE 25 MG TABLET PO SCH (10:27)
[2022-10-07] MEDS: traZODone HCL 50 MG TABLET (FP) PO SCH (21:33)
[2022-10-07] MEDS: THIAMINE HCL 100 MG TABLET (FP) PO SCH (21:33)
[2022-10-07] MEDS: MELATONIN 5 MG TABLETS PO PRN (21:33)
[2022-10-08] MEDS: LEVOTHYROXINE 100 MCG, LEVOTHYROXINE 75 MCG PO SCH (06:26)
[2022-10-08] MEDS: FUROSEMIDE 20 MG TABLET (FP) PO SCH ×2 (06:27→13:04)
[2022-10-08] MEDS: PRENATAL VITAMINS W/ FOLIC ACID TABLET (FP) PO SCH (10:15)
[2022-10-08] MEDS: SPIRONOLACTONE 25 MG TABLET PO SCH (10:15)
[2022-10-08] MEDS: MAGNESIUM OXIDE 400 MG TABLET (FP) PO SCH (10:15)
[2022-10-08] MEDS: CHOLECALCIFEROL (VIT D3) 400 UNIT (10 MCG) TABLET PO SCH (10:15)
[2022-10-08] MEDS: traZODone HCL 50 MG TABLET (FP) PO SCH (21:48)
[2022-10-08] MEDS: THIAMINE HCL 100 MG TABLET (FP) PO SCH (21:48)
[2022-10-08] MEDS: MELATONIN 5 MG TABLETS PO PRN (21:48)
[2022-10-09] MEDS: LEVOTHYROXINE 100 MCG, LEVOTHYROXINE 75 MCG PO SCH (05:59)
[2022-10-09] MEDS: FUROSEMIDE 20 MG TABLET (FP) PO SCH ×2 (06:00→14:07)
[2022-10-09 07:01] VITALS: TEMP 97.5
[2022-10-09] MEDS: CHOLECALCIFEROL (VIT D3) 400 UNIT (10 MCG) TABLET PO SCH (09:28)
[2022-10-09] MEDS: PRENATAL VITAMINS W/ FOLIC ACID TABLET (FP) PO SCH (09:28)
[2022-10-09] MEDS: MAGNESIUM OXIDE 400 MG TABLET (FP) PO SCH (09:29)
[2022-10-09] MEDS: SPIRONOLACTONE 25 MG TABLET PO SCH (09:29)
[2022-10-09] MEDS: THIAMINE HCL 100 MG TABLET (FP) PO SCH (21:34)
[2022-10-09] MEDS: traZODone HCL 50 MG TABLET (FP) PO SCH (21:35)
[2022-10-09] MEDS: MELATONIN 5 MG TABLETS PO PRN (21:35)
[2022-10-10] MEDS: LEVOTHYROXINE 100 MCG, LEVOTHYROXINE 75 MCG PO SCH (06:05)
[2022-10-10] MEDS: FUROSEMIDE 20 MG TABLET (FP) PO SCH (06:05)
[2022-10-10 07:30] VITALS: RESP 17
[2022-10-10 09:18] VITALS: BP 103/72; PULSE 91
[2022-10-10] MEDS: PRENATAL VITAMINS W/ FOLIC ACID TABLET (FP) PO SCH (09:52)
[2022-10-10] MEDS: MAGNESIUM OXIDE 400 MG TABLET (FP) PO SCH (09:52)
[2022-10-10] MEDS: CHOLECALCIFEROL (VIT D3) 400 UNIT (10 MCG) TABLET PO SCH (09:52)
[2022-10-10] MEDS: SPIRONOLACTONE 25 MG TABLET PO SCH (09:52)
[2022-10-10] MEDS ORDERED: NALTREXONE MICROSPHERES (VIVITROL) 380 MG DISP.SYRIN IM ONE (10:00)
== END 2022-10-10 10:07 | disposition home or self-care (01) | DRG 772 ==
LOC: YASAS 16:29 → Y3W 18:12 → Y3E 09-22 11:19 → Y3W 09-22 11:21
PROVIDERS: ADMIT Allergy & Immunology; ATTEND Psychiatry & Neurology Pain Medicine
PROC: HZ42ZZZ Group Counseling for Substance Abuse Treatment, Cognitive-Behavioral (ICD-10-PCS; principal; 2022-09-21)
DX: F10.20 Alcohol dependence, uncomplicated (principal); F12.20 Cannabis dependence, uncomplicated; F17.210 Nicotine dependence, cigarettes, uncomplicated; F10.282 Alcohol dependence with alcohol-induced sleep disorder; F10.280 Alcohol dependence with alcohol-induced anxiety disorder; F10.24 Alcohol dependence with alcohol-induced mood disorder; F41.9 Anxiety disorder, unspecified; E72.20 Disorder of urea cycle metabolism, unspecified; E03.9 Hypothyroidism, unspecified; G47.00 Insomnia, unspecified; K70.31 Alcoholic cirrhosis of liver with ascites; Z28.310 Unvaccinated for COVID-19; Z28.9 Immunization not carried out for unspecified reason
CPT/HCPCS: 36415; 80053; 80069; 82140; 85610; 93005; 93010; C9803-CS; J2315; U0003; U0005